=== PATIENT | male | born 1945 | race Caucasian/White ===

== ENCOUNTER 2017-09-22 02:37 | Inpatient (IN) | payer MEDICARE, BC ==
[2017-09-22] VITALS (23 sets, daily range): BP systolic 101–137; BP diastolic 64–85; BMI 35.5
[~2017-09-22] VITALS: Ht 180.3 cm; Wt 120.5 kg
--- NOTE | ~2017-09-22 | HEMODYNAMI ---
PATIENT:GAEL BRUNSON MEDICAL RECORD: [id number] : 49 LOCATION:[facility] D.2305 ADMISSION DATE: 09/22/17 Generatedon:09/22/201717:41 Patient name: GAEL BRUNSON Patient #: [id number] SSN: D OB: 1945 Date of study: 09/22/2017 Page: Of Hemodynamic Procedure Report Patient Data Patient Demographics Procedure consent was obtained First Name: GAEL Gender: Male Last Name: NANNETTE : 1945 Patient #: [id number] Age: 72 year(s) Race: Unknown Additional ID: [id number] Contact details [address]: [address] [place] [address] State: [place] City: [place] Zip code: [address] Admission Admission Data Admission Date: 09/22/2017 Admission Time: 2:37 Room #: D.2305 Procedure Procedure Types Cath Procedure Peripheral Cath Diagnostic Procedure Venography IVC/SVC Inferior Venacava Filter Procedure Description Procedure Date Procedure Date: 09/22/2017 Procedure Start Time: 17:07 Procedure Staff Name Function Jose Alfredo López MD Performing Physician Wilfredo Mohr RT Monitor Tanika Welch RT Scrub Lamar Morgan RN Nurse Procedure Data Cath Procedure Fluoroscopy Diagnostic fluoroscopy Total fluoroscopy Time: 1.3 time: 1.3 min min Diagnostic fluoroscopy Total fluoroscopy dose: 215 dose: 215 mGy mGy Contrast Material Contrast Material Type Amount (ml) Isovue 300 20 Procedure Medications Medication Administration Route Dosage Versed I.V. 1 mg Fentanyl I.V. 50 mcg Fentanyl I.V. 50 mcg Versed I.V. 1 mg Lidocaine 1% added to field 20 Heparin Flush Bag added to field 2 bags (1000units/500ml NS) Heparin Flush Bag added to field 1 bags (1000units/500ml NS) Hemodynamics Rest Heart Rate: 105 (bpm) Snapshots Pre Cath Intra NCS Post Cath Vital Signs Time Heart Resp SPO2 etCO2 NIBP (mmHg) Rhythm Pain Sedation Rate (ipm) (%) (mmHg) Status Level (bpm) 16:45:20 116 13 97 20.9 Measuring NSR 0 (11) 10(A) , No pain 16:45:49 100 12 96 23.2 145/78(109) NSR 0 (11) 10(A) , No pain 16:50:03 106 22 94 23.9 133/83(101) NSR 0 (11) 10(A) , No pain 16:54:17 123 23 95 23.9 122/87(102) NSR 0 (11) 10(A) , No pain 16:58:31 107 23 96 24.7 127/78(101) NSR 0 (11) 10(A) , No pain 17:02:43 105 24 97 24 130/81(97) NSR 0 (11) 10(A) , No pain 17:06:57 101 24 95 23.9 136/84(100) NSR 0 (11) 10(A) , No pain 17:11:07 99 27 92 24.7 129/83(107) NSR 0 (11) 10(A) , No pain 17:15:21 103 24 94 24.7 128/78(94) NSR 0 (11) 10(A) , No pain 17:19:30 104 23 94 25.5 127/83(96) NSR 0 (11) 10(A) , No pain 17:23:44 104 21 95 26.2 122/77(93) NSR 0 (11) 10(A) , No pain 17:27:56 100 26 94 24.7 123/77(98) NSR 0 (11) 10(A) , No pain 17:32:10 100 25 94 25.4 123/75(88) NSR 0 (11) 10(A) , No pain 17:36:24 104 23 94 26.2 118/77(95) NSR 0 (11) 10(A) , No pain 17:40:36 95 22 94 0 119/78(91) NSR 0 (11) 10(A) , No pain Medications Time Medication Route Dose Verified Delivered Reason Notes Effect iveness by by 17:06:23 Lidocaine 1% added 20ml to vial field 17:06:45 Heparin Flush added 2 Bag to bags (1000units/500ml field NS) 17:06:47 Heparin Flush added 1 Bag to bags (1000units/500ml field NS) 17:09:33 Versed I.V. 1 mg Jose Alfredo Newton for Rene Morgan RN sedation 17:09:43 Fentanyl I.V. 50 Jose Alfredo Newton for mcg Rene Morgan RN sedation 17:25:16 Fentanyl I.V. 50 Jose Alfredo Newton for mcg Rene Morgan RN sedation 17:25:24 Versed I.V. 1 mg Jose Alfredo Newton for Rene Morgan RN sedation Procedure Log Time Note 16:29:50 Wilfredo Onur RT (R) (CV) sent for patient. Start room use. 16:29:59 Time tracking: Regular hours 16:30:04 Plan of Care:Hemodynamics will remain stable., Cardiac rhythm will remain stable., Comfort level will be maintained., Respiratory function will remain adequate., Patient/ family verbilizes understanding of procedure., Procedure tolerated without complication., Recovers from procedure without complications.. 16:30:15 Patient received from ICU to IR Alert and oriented. Tansferred to table in Supine position. 16:30:16 Correct patient and procedure confirmed by team. 16:30:18 Signed procedure consent form obtained from patient. 16:30:19 ECG and BP/O2 sat monitors applied to patient. 16:30:20 Full Disclosure recording started 16:30:20 - 16:30:24 H&P Date Dictated: 09/22/2017 Within 30 days and on chart.. 16:30:25 Pre-procedure instructions explained to patient. 16:30:25 Pre-op teaching completed and patient verbalized understanding. 16:30:26 Family in waiting room. 16:30:28 Patient NPO since Midnight. 16:30:33 Is the patient allergic to Iodine/contrast media? No. 16:30:37 Is patient on blood thinner?Yes 16:31:10 ----Pre-sedation anethsthesia assessment.---- 16:31:15 Previous problem with sedation/anesthesia? No ? 16:31:17 Snore? No 16:31:18 Sleep apnea? No 16:31:19 Deviated septum? Yes 16:31:21 Opens mouth fully? Yes 16:31:24 Sticks out tongue? Yes 16:31:33 Airway obstruction? Yes PE 16:31:38 Dentures? No ? 16:31:42 Sharps counted by scrub and verified by R.N. 16:31:43 Alarms reviewed by R. N. 16:31:54 Right neck area was prepped with chlora-prep and draped in sterile fashion 16:34:26 Patient pain scale 0/10 no. 16:34:44 IV patent on arrival in left forearm with 0.9% NaCl at [facility]. 16:34:52 Use device set IR Diagnostic 16:34:53 ACIST Syringe (32833) opened to sterile field. 16:34:54 ACIST Hand Control (82052) opened to sterile field. 16:34:54 ACIST Manifold (81652) opened to sterile field. 16:34:55 Bag Decanter (2002S) opened to sterile field. 16:34:55 Sterile Angiographic Pack opened to sterile field. 16:43:31 Baseline sample Acquired. 16:43:31 Vital chart was started 17:06:23 Lidocaine 1% 20ml vial added to field was administered by ; ; 17:06:39 Physician arrived 17:06:39 --------ALL STOP TIME OUT------ 17:06:40 Final Timeout: patient, procedure, and site verified with staff and physician. All members of the team are in agreement. 17:06:45 Heparin Flush Bag (1000units/500ml NS) 2 bags added to field was administered by ; ; 17:06:47 Heparin Flush Bag (1000units/500ml NS) 1 bags added to field was administered by ; ; 17:06:47 Right neck site verified by team. 17:06:52 Sedation plan: IV Moderate Sedation Medication:Versed, Fentanyl 17:07:02 Procedure started. 17:07:16 Local anesthetic to right IJ vein with Lidocaine 1% by Jose Alfredo López MD.INITIAL ACCESS ONLY 17:07:29 TUBING Contrast Injection High Pressure (TCK104G) opened to sterile field. 17:07:29 TUBING Contrast Injection High Pressure (HBF464I) opened to sterile field. 17:07:29 Micropuncture VSI 4FR kit opened to sterile field. 17:07:30 BENTSON 145cm wire ([id number]) opened to sterile field. 17:07:30 Bard MOISE JUGULAR Vena Cava Filter opened to sterile field. 17:09:33 Versed 1 mg I.V. was administered by Lamar Morgan RN; for sedation; 17:09:43 Fentanyl 50 mcg I.V. was administered by Lamar Morgan RN; for sedation ; 17:10:56 Baseline sample Acquired. 17:25:16 Fentanyl 50 mcg I.V. was administered by Lamar Morgan RN; for sedation ; 17:25:24 Versed 1 mg I.V. was administered by Lamar Morgan RN; for sedation; 17:29:49 Procedure ended.(Physican Out) 17:30:17 Fluoroscopy time 01.30 minutes. 17:30:21 Fluoroscopy dose: 215 mGy 17:30:21 Flurop Dose total: 215 17:30:22 Sharps counted by scrub and verified by R.N. 17:30:24 Insertion/operative site no bleeding no hematoma. 17:30:30 Post-op/insertion site Right Jugular vein dressed using a 4 x 4 and Tegaderm. 17:30:35 Post right IJ vein:stable 17:30:55 Post procedure instruction explained to patient.Patient verbalizes understanding. 17:30:55 Procedure and supply charges have been captured, reviewed, submitted an d are correct. 17:32:37 Contrast amount:Isovue 300 20ml. 17:41:09 Report given to ICU. 17:41:12 Patient transfered to ICU with Bed. 17:41:48 Vital chart was stopped Device Usage Item Name Manufacture Quantity Catalog Hospital Part Current Minima l Lot# / Number Charge Number Stock Stock Serial# Code ACIST Syringe Acist 1 [id number] [id number] [id number] 20 (36800) Medical Systems Inc ACIST Hand Acist 1 60532 230329 561096 707927 5 Control Medical (29361) Systems Inc ACIST Acist 1 14231 716452 134281 591093 5 Manifold Medical (87016) Systems Inc Bag Decanter Microtek 1 454504 25588 078511 5 (2002S) Medical Inc. Sterile Cardinal 1 [id number] 799531 832297 5 Angiographic Health Pack TUBING Merit 2 [id number] 743522 521347 311521 5 Contrast Medical Injection High Pressure ([id number]) Micropuncture VSI VASCULAR 1 7266V 283742 977627 5 VSI 4FR kit SOLUTIONS BENTSON 145cm [facility] 1 [id number] 374861 232481 5 [id number] wire ([id number]) Bard MOISE Bard 1 [id number] 280071 471526 736387 5 [id number] JUGULAR Vena Cava Filter Signature Audit [place] Stage Time Signature Unsigned Intra-Procedure 09/22/2017 Wilfredo 5:41:46 PM Onur RT (R) (CV) Signatures Monitor : Wilfredo Signature : Onur RT Date : Time : [id number] [place] [address]
--- NOTE | ~2017-09-22 | CN ---
PATIENT NAME:GAEL BRUNSON MEDICAL RECORD: [id number] : 49 [facility] ADMIT DATE: 09/22/17 ACCOUNT: [id number] CONSULTING PHYSICIAN: MANUEL GLOVER MD REFERRING PHYSICIAN: UMA DAVIS MD DATE OF CONSULTATION: 09/22/2017 CONSULT REQUESTING PHYSICIAN: Zoraida Dunham MD REASON FOR CONSULTATION: Multiple PEs, DVT. HISTORY OF PRESENT ILLNESS: Mr. Brunson is a 72-year-old gentleman, who was just hospitalized at [facility] for possible pneumonia and flu. He was discharged home on 09/19/2017, but he has progressive shortness of breath over a week and he was seen at [facility]. There were some EKG changes and found out that the patient has DVT as well as elevated troponin. The patient was transferred over here for further care. PAST MEDICAL HISTORY: 1. DVT. 2. Hypertension. 3. Hyperlipidemia. 4. Hypothyroidism. 5. History of asbestos exposure. 6. Hypertension. PAST SURGICAL HISTORY: 1. He has ankle surgery. 2. Herniorrhaphy. ALLERGIES: No known drug allergies. MEDICATIONS: He was on Augmentin, amlodipine, metoprolol, and Synthroid. PERSONAL SOCIAL HISTORY: The patient is an ex-smoker. He is a nondrinker. FAMILY HISTORY: Significant for lung disease, diabetes, and cancer. PHYSICAL EXAMINATION: GENERAL: Now, the patient is lying comfortably in bed. He is not in acute distress. VITAL SIGNS: The blood pressure is 140/80, pulse is 97, respiration is 20, temperature is 97.7, and SpO2 is 95% on 5 liters nasal cannula. HEENT: Conjunctivae pink, sclerae nonicteric. NECK: Neck is supple. No JVD. CHEST: The chest excursion is minimal on both sides. There is basal crackle. No wheezing. HEART: Rhythm regular, normal sound, no murmur. ABDOMEN: Abdomen is soft. Bowel sounds present. No hepatosplenomegaly. RECTAL: Deferred. EXTREMITIES: No cyanosis, no clubbing, no pedal edema. SKIN: The skin is warm, normal turgor. CENTRAL NERVOUS SYSTEM: The patient is awake and alert. There is no obvious cranial nerve abnormality. The gait was not tested. CONSULT REPORT [id number] GAEL BRUNSON LABORATORY DATA AND DIAGNOSTIC STUDIES: CTA of the chest, there are multiple pulmonary embolism bilaterally, also shows right ventricular strain. There are also emphysematous changes. CBC: The WBC is 12, hemoglobin is 15.8, hematocrit 47.1, and the platelet count is 295. ABG: The pH is 7.47, pCO2 is 38.4, pO2 is 55, and bicarbonate is 28. IMPRESSION: 1. Acute hypoxic respiratory failure and multiple pulmonary embolisms. 2. Chronic obstructive pulmonary disease acute exacerbation. 3. Deep venous thrombosis. 4. Asbestos exposure. 5. Coronary artery disease with history of flu and pneumonia recently. RECOMMENDATION: 1. Continue Zosyn. 2. Lovenox subQ. 3. Agree with IVC filter placement. 4. Start methylprednisolone IV. 5. Mucinex DM. 6. Followup labs and chest radiograph. Dr. Dunham, thank you for involving me in the care of Mr. Brunson. TRANSINT:[id number] Voice Confirmation ID: [id number] DOCUMENT ID: [id number] MANUEL GLOVER MD CC: ZORAIDA DUNHAM MD [id number] DICTATION DATE: 09/22/17 1545 DOUGHNUT DOUGH MIXER: 09/22/17 1618 ADM IN [facility] [address] [id number]
[2017-09-22] MEDS ORDERED: NORVASC5 MG PO (02:42)
[2017-09-22] MEDS ORDERED: METOPROLOL TART25 MG PO (02:43)
[2017-09-22] MEDS ORDERED: SYNTHROID200 MC1 PO (02:43)
[2017-09-22] MEDS ORDERED: SYNTHROID50 MCG PO (02:45)
[2017-09-22] MEDS ORDERED: ZOCOR40 MG PO (02:46)
[2017-09-22] MEDS ORDERED: BENADRYL50 MG PO (02:47)
[2017-09-22 04:01] LABS: BASOPHILS 0.7 % (0-2); EOSINOPHILS 1.9 % (0-7); HEMATOCRIT 47.1 % (42.0-54.0); HEMOGLOBIN 15.8 g/dL (13.5-17.5); IMMATURE GRANULOCYTES 2.4 % (0-5); LYMPHOCYTES 15.8 % (15-50); MCH 33.3 pg (26.0-34.0); MCHC 33.5 g/dL (31.0-37.0); MCV 99.4 fL (80.0-100.0); MEAN PLATELET VOLUME 9.7 fL (7.4-10.4); MONOCYTES 13.3 % (2-11); NEUTROPHILS 65.9 % (40-80); PLATELET COUNT 295 10x3/uL (130-400); RBC 4.74 10x6/uL (4.20-6.10); RDW 13.3 % (11.5-14.5)
[2017-09-22 04:17] LABS: ALBUMIN 2.6 g/dL (3.4-5.0); ALKALINE PHOSPHATASE 127 U/L (46-116); ALT (SGPT) 52 U/L (10-68); CALC OSMOLALITY 275 mosm/kg (275-300); CALCIUM 8.5 mg/dL (8.5-10.1); CARBON DIOXIDE 31.7 mmol/L (21.0-32.0); CHLORIDE - SERUM 98 mmol/L (98-107); CREATININE - SERUM 1.3 mg/dL (0.6-1.3); GLUCOSE 125 mg/dL (74-106); POTASSIUM - SERUM 3.5 mmol/L (3.5-5.1); SODIUM 137 mmol/L (136-145); UREA NITROGEN 16 mg/dL (7-18); eGFR NON AFRICAN AMERICAN 58 mL/min (90-120)
[2017-09-22 04:33] LABS: CKMB 1.1 U/L (0.0-3.6); CREATINE KINASE 120 UL (21-232); TROPONIN-I 0.088 ng/mL (0.000-0.060)
[2017-09-22 12:20] LABS: THYROID STIMULATING HORMONE 0.54 uIU/mL (0.36-3.74); TROPONIN-I 0.051 ng/mL (0.000-0.060)
[2017-09-22 16:47] LABS: INR 1.19 (0.85-1.17); PROTIME 14.6 SECONDS (11.6-15.0)
[2017-09-23] VITALS (24 sets, daily range): BP systolic 93–132; BP diastolic 61–95; Ht 180.3 cm; Wt 120.5 kg
[2017-09-23 04:52] LABS: BASOPHILS 0.6 % (0-2); EOSINOPHILS 2.4 % (0-7); HEMATOCRIT 44.8 % (42.0-54.0); HEMOGLOBIN 14.6 g/dL (13.5-17.5); IMMATURE GRANULOCYTES 2.1 % (0-5); LYMPHOCYTES 15.2 % (15-50); MCH 32.5 pg (26.0-34.0); MCHC 32.6 g/dL (31.0-37.0); MCV 99.8 fL (80.0-100.0); MEAN PLATELET VOLUME 10.3 fL (7.4-10.4); MONOCYTES 13.3 % (2-11); NEUTROPHILS 66.4 % (40-80); PLATELET COUNT 320 10x3/uL (130-400); RBC 4.49 10x6/uL (4.20-6.10); RDW 13.5 % (11.5-14.5); WBC 9.7 10x3/uL (4.8-10.8)
[2017-09-23 05:10] LABS: ALBUMIN 2.3 g/dL (3.4-5.0); ANION GAP 12.2 mmol/L (8-16); BILIRUBIN - TOTAL 1.16 mg/dL (0.2-1.3); CALCIUM 8.3 mg/dL (8.5-10.1); CARBON DIOXIDE 30.2 mmol/L (21.0-32.0); CREATININE - SERUM 1.1 mg/dL (0.6-1.3); POTASSIUM - SERUM 3.4 mmol/L (3.5-5.1); PROTEIN - SERUM 6.4 g/dL (6.4-8.2)
[2017-09-23 11:21] LABS: ACLA - IGG AB <9 GPL U/mL (0-14); ACLA - IGM AB <9 MPL U/mL (0-12)
[2017-09-24] VITALS (13 sets, daily range): BP systolic 93–130; BP diastolic 61–86
[2017-09-24 07:19] LABS: BASOPHILS 0.7 % (0-2); EOSINOPHILS 2.7 % (0-7); HEMATOCRIT 43.7 % (42.0-54.0); HEMOGLOBIN 14.3 g/dL (13.5-17.5); IMMATURE GRANULOCYTES 3.8 % (0-5); LYMPHOCYTES 16.7 % (15-50); MCH 32.6 pg (26.0-34.0); MCHC 32.7 g/dL (31.0-37.0); MCV 99.8 fL (80.0-100.0); MEAN PLATELET VOLUME 10.1 fL (7.4-10.4); MONOCYTES 14.6 % (2-11); NEUTROPHILS 61.5 % (40-80); PLATELET COUNT 313 10x3/uL (130-400); RBC 4.38 10x6/uL (4.20-6.10); RDW 13.4 % (11.5-14.5); WBC 8.6 10x3/uL (4.8-10.8)
[2017-09-24 07:28] LABS: ALBUMIN 2.3 g/dL (3.4-5.0); ALKALINE PHOSPHATASE 111 U/L (46-116); ALT (SGPT) 38 U/L (10-68); BILIRUBIN - TOTAL 1.04 mg/dL (0.2-1.3); CALC OSMOLALITY 273 mosm/kg (275-300); CARBON DIOXIDE 30.8 mmol/L (21.0-32.0); CHLORIDE - SERUM 100 mmol/L (98-107); GLUCOSE 116 mg/dL (74-106); POTASSIUM - SERUM 3.2 mmol/L (3.5-5.1); PROTEIN - SERUM 6.5 g/dL (6.4-8.2); SODIUM 137 mmol/L (136-145); UREA NITROGEN 9 mg/dL (7-18); eGFR NON AFRICAN AMERICAN 78 mL/min (90-120)
[2017-09-24 11:18] LABS: CEA 0.9 ng/mL (0.0-4.7)
[2017-09-25] VITALS: BP 108/72
[2017-09-25 05:18] LABS: BASOPHILS 0.4 % (0-2); EOSINOPHILS 2.2 % (0-7); LYMPHOCYTES 20.8 % (15-50); MCH 32.5 pg (26.0-34.0); MCHC 32.6 g/dL (31.0-37.0); MCV 99.8 fL (80.0-100.0); MEAN PLATELET VOLUME 10.3 fL (7.4-10.4); MONOCYTES 12.6 % (2-11); PLATELET COUNT 333 10x3/uL (130-400); RBC 4.31 10x6/uL (4.20-6.10); RDW 13.4 % (11.5-14.5); WBC 8.5 10x3/uL (4.8-10.8)
[2017-09-25 05:55] LABS: ALBUMIN 2.3 g/dL (3.4-5.0); ALKALINE PHOSPHATASE 113 U/L (46-116); ALT (SGPT) 39 U/L (10-68); CALC OSMOLALITY 273 mosm/kg (275-300); CALCIUM 8.3 mg/dL (8.5-10.1); CARBON DIOXIDE 30.9 mmol/L (21.0-32.0); CHLORIDE - SERUM 101 mmol/L (98-107); GLUCOSE 102 mg/dL (74-106); PROTEIN - SERUM 6.6 g/dL (6.4-8.2); SODIUM 138 mmol/L (136-145); UREA NITROGEN 7 mg/dL (7-18); eGFR NON AFRICAN AMERICAN 78 mL/min (90-120)
[2017-09-25 06:00] VITALS: BP 106/72
[2017-09-25 08:42] VITALS: BP 130/72
[2017-09-25 09:16] LABS: ANTITHROMBIN III ACTIVITY 92 % (75-135)
[2017-09-25 10:34] LABS: MAGNESIUM - SERUM 2.5 mg/dL (1.8-2.4); PHOSPHOROUS 2.9 mg/dL (2.5-4.9)
[2017-09-25 11:21] LABS: LUPUS - INTERPRETATION Comment: (()); LUPUS - THROMBIN TIME 20.8 sec (0.0-23.0); LUPUS - dRVVT 44.9 sec (0.0-47.0); PROTEIN S - FREE 124 % (57-157); PROTEIN S - FUNCTIONAL 104 % (63-140); PROTEIN S - TOTAL 128 % (60-150); PTT-LA 42.8 sec (0.0-51.9)
[2017-09-25 11:49] VITALS: BP 119/72
[2017-09-25 15:25] LABS: FACTOR VIII - APTT 29.4 sec (22.9-30.2); FACTOR VIII - APTT 1:1 NP 27.3 sec (22.9-30.2); FACTOR VIII ACTIVITY 180 % (57-163)
[2017-09-25 15:51] VITALS: BP 123/58
[2017-09-25 20:00] VITALS: BP 124/60
[2017-09-26 04:00] VITALS: BP 122/61
[2017-09-26 05:51] LABS: BASOPHILS 0.7 % (0-2); HEMATOCRIT 42.2 % (42.0-54.0); HEMOGLOBIN 13.6 g/dL (13.5-17.5); IMMATURE GRANULOCYTES 4.6 % (0-5); LYMPHOCYTES 18.1 % (15-50); MCH 32.2 pg (26.0-34.0); MCHC 32.2 g/dL (31.0-37.0); MCV 99.8 fL (80.0-100.0); MEAN PLATELET VOLUME 10.1 fL (7.4-10.4); MONOCYTES 10.8 % (2-11); NEUTROPHILS 62.8 % (40-80); PLATELET COUNT 348 10x3/uL (130-400); RBC 4.23 10x6/uL (4.20-6.10); RDW 13.6 % (11.5-14.5); WBC 8.9 10x3/uL (4.8-10.8)
[2017-09-26 06:10] LABS: ALBUMIN 2.2 g/dL (3.4-5.0); ANION GAP 11.1 mmol/L (8-16); BILIRUBIN - TOTAL 0.5 mg/dL (0.2-1.3); CALCIUM 7.7 mg/dL (8.5-10.1); CARBON DIOXIDE 30.1 mmol/L (21.0-32.0); CREATININE - SERUM 1.1 mg/dL (0.6-1.3); POTASSIUM - SERUM 3.2 mmol/L (3.5-5.1); PROTEIN - SERUM 6.4 g/dL (6.4-8.2)
[2017-09-26 08:41] VITALS: BP 118/65
[2017-09-26 11:55] VITALS: BP 107/59
[2017-09-26 13:16] LABS: PROTEIN C - ANTIGEN 79 % (60-150); PROTEIN C - FUNCTIONAL 92 % (73-180)
[2017-09-26] MEDS ORDERED: MUCINEX DM ER1 EAC1 PO (15:27)
[2017-09-26] MEDS ORDERED: PULMICORT0.5 MG/21 UPD (15:27)
[2017-09-26] MEDS ORDERED: PROTONIX40 MG PO (15:28)
[2017-09-26] MEDS ORDERED: BROVANA15 MCG/2 M INH (15:28)
[2017-09-26] MEDS ORDERED: LEVAQUIN750 MG PO (15:29)
[2017-09-26] MEDS ORDERED: ELIQUIS5 MG PO ×2 (15:30→15:31)
[2017-09-26 16:04] VITALS: BP 125/69
[2017-09-29 20:09] LABS: FACTOR II DNA ANALYSIS Negative (())
== END 2017-09-26 19:19 | disposition home health service (06) | DRG 166 ==
LOC: D.ICU 02:37 → D.MS 02:37
PROVIDERS: Family Medicine; Internal Medicine Hematology & Oncology; Internal Medicine Nephrology; Radiology Diagnostic Radiology
PROC: 06H03DZ Insertion of Intraluminal Device into Inferior Vena Cava, Percutaneous Approach (ICD-10-PCS; principal; 2017-09-22 16:30)
DX: I26.99 Other pulmonary embolism without acute cor pulmonale (principal); J96.01 Acute respiratory failure with hypoxia; J18.9 Pneumonia, unspecified organism; J44.1 Chronic obstructive pulmonary disease with (acute) exacerbation; J44.0 Chronic obstructive pulmonary disease with (acute) lower respiratory infection; J98.11 Atelectasis; D68.59 Other primary thrombophilia; I82.413 Acute embolism and thrombosis of femoral vein, bilateral; I82.443 Acute embolism and thrombosis of tibial vein, bilateral; I10 Essential (primary) hypertension; E78.5 Hyperlipidemia, unspecified; E03.9 Hypothyroidism, unspecified; I25.10 Atherosclerotic heart disease of native coronary artery without angina pectoris; Z77.090 Contact with and (suspected) exposure to asbestos; Z87.891 Personal history of nicotine dependence

== ENCOUNTER → 2018-01-14 12:29 | Outpatient (CLI) | payer MEDICARE, BC ==
[2017-09-23 14:42] VITALS: BMI 35.4
[~2018-01-14 12:29] MED LIST: BENADRYL50 MG PO; BROVANA15 MCG/2 M INH; COZAAR100 MG PO; ELIQUIS5 MG PO; LEVAQUIN750 MG PO; METOPROLOL TART25 MG PO; MUCINEX DM ER1 EAC1 PO; NORVASC5 MG PO; PROTONIX40 MG PO; PULMICORT0.5 MG/21 UPD; SYNTHROID200 MC1 PO; SYNTHROID50 MCG PO; ZOCOR40 MG PO
== END | disposition home or self-care (01) ==
LOC: D.RT 12:29 → D.US 14:00
DX: J44.9 Chronic obstructive pulmonary disease, unspecified (principal); I82.409 Acute embolism and thrombosis of unspecified deep veins of unspecified lower extremity; I26.99 Other pulmonary embolism without acute cor pulmonale; R22.43 Localized swelling, mass and lump, lower limb, bilateral

== ENCOUNTER 2018-01-27 06:40 | Outpatient (CLI) | payer MEDICARE, BC ==
[~2018-01-27] VITALS: Ht 180.3 cm; Wt 90.9 kg
--- NOTE | ~2018-01-27 | HEMODYNAMI ---
PATIENT:GAEL BRUNSON MEDICAL RECORD: [id number] : 49 LOCATION:[facility] ADMISSION DATE: 01/27/18 Generatedon:01/27/20189:47 Patient name: GAEL BRUNSON Patient #: [id number] SSN: D OB: 1945 Date of study: 01/27/2018 Page: Of Hemodynamic Procedure Report Patient Data Patient Demographics Procedure consent was obtained First Name: GAEL Gender: Male Last Name: NANNETTE : 1945 [facility] Initial: VINDAL Age: 72 year(s) Patient #: [id number] Race: Unknown Additional ID: [id number] Contact details Address: [address] [place] [address] State: [place] City: [place] Zip code: [address] Past Medical History Allergies: No known allergies Admission Admission Data Admission Date: 01/27/2018 Admission Time: 6:40 Procedure Procedure Types Cath Procedure Peripheral Cath Diagnostic Procedure Venography IVC/SVC IVC Filter Retreival Procedure Description Procedure Date Procedure Date: 01/27/2018 Procedure Start Time: 9:20 Procedure End Time: 9:46 Procedure Staff Name Function Jose Alfredo López MD Performing Physician Tanika Welch RT Monitor Raiza Carrasco RN Nurse Wilfredo Mohr RT Scrub Procedure Data Cath Procedure Fluoroscopy Diagnostic fluoroscopy Total fluoroscopy Time: 2.7 time: 2.7 min min Diagnostic fluoroscopy Total fluoroscopy dose: 241 dose: 241 mGy mGy Contrast Material Contrast Material Type Amount (ml) Isovue 300 15 Procedure Medications Medication Administration Route Dosage Fentanyl I.V. 50 mcg Versed I.V. 2 mg Lidocaine 1% added to field 20 Heparin Flush Bag added to field 1 bags (1000units/500ml NS) Oxygen etCO2 Nasal cannula 4 l/min Hemodynamics Rest Heart Rate: 67 (bpm) Snapshots Pre Cath Intra NCS Post Cath Vital Signs Time Heart Resp SPO2 etCO2 NIBP (mmHg) Rhythm Pain Sedation Rate (ipm) (%) (mmHg) Status Level (bpm) 8:42:03 67 26 96 0 129/75(111) NSR 0 (11) 10(A) , No pain 8:46:21 7 95 0 130/81(92) NSR 0 (11) 10(A) , No pain 8:50:39 62 22 98 30.7 133/82(115) NSR 0 (11) 10(A) , No pain 8:54:59 63 22 97 30.7 130/74(106) NSR 0 (11) 10(A) , No pain 8:59:17 63 25 98 33 128/80(100) NSR 0 (11) 10(A) , No pain 9:03:39 62 21 99 33 130/73(93) NSR 0 (11) 10(A) , No pain 9:07:59 61 19 98 32.2 127/73(89) NSR 0 (11) 10(A) , No pain 9:12:17 64 22 99 31.5 125/80(104) NSR 0 (11) 10(A) , No pain 9:16:33 66 25 98 27.7 138/78(121) NSR 0 (11) 10(A) , No pain 9:20:51 68 24 98 32.3 137/82(112) NSR 0 (11) 8(A) , No pain 9:24:59 65 18 94 34.4 119/71(100) NSR 0 (11) 8(A) , No pain 9:29:15 62 20 94 34.5 125/72(101) NSR 0 (11) 8(A) , No pain 9:33:29 64 18 94 38.3 124/75(101) NSR 0 (11) 8(A) , No pain 9:37:43 67 24 94 26.2 117/75(97) NSR 0 (11) 8(A) , No pain 9:41:59 63 17 92 32.9 125/74(102) NSR 0 (11) 8(A) , No pain 9:45:59 0 No Cuff NSR 0 (11) 8(A) , No pain Medications Time Medication Route Dose Verified Delivered Reason Notes Effect iveness by by 9:20:05 Oxygen etCO2 4 Jose Alfredo Eastman Per Nasal l/min Rene Carrasco RN protocol cannula 9:22:59 Fentanyl I.V. 50 Jose Alfredo Raiza per drug Mostly mcg Rene Carrasco RN protocol sleeping @ 9:28:26 9:23:15 Versed I.V. 2 mg Jose Alfredo Raiza for Mostly Rene Carrasco RN sedation sleeping @ 9:28:23 9:23:31 Lidocaine 1% added 20ml Jose Alfredo Jose Alfredo Per to vial Rene López protocol field MD SANDOVAL 9:23:47 Heparin Flush added 1 Jose Alfredo Veliz Per Bag to bags Rene ambrose (1000units/500ml field MD SANDOVAL NS) Procedure Log Time Note 8:16:55 Diagnostic Cath Status : Elective 8:20:02 Use device set IR Diagnostic 8:20:09 Bag Decanter (2002S) opened to sterile field. 8:20:11 Sterile Angiographic Pack opened to sterile field. 8:20:12 Tegaderm 4 x 4 (1626W) opened to sterile field. 8:20:52 MICROPUNCTURE 4FR Cook ([id number]) opened to sterile field. 8:21:02 BENTSON 145cm wire (S99829) opened to sterile field. 8:40:00 Wilfredo Mohr RT (R) (CV) sent for patient. Start room use. 8:40:05 Time tracking: Regular hours (M-F 7:00 - 5:00) 8:40:16 Plan of Care:Hemodynamics will remain stable., Cardiac rhythm will remain stable., Comfort level will be maintained., Respiratory function will remain adequate., Patient/ family verbilizes understanding of procedure., Procedure tolerated without complication., Recovers from procedure without complications.. 8:40:34 Patient received from Outpatients to IR Alert and oriented. Tansferred to table in Supine position. 8:40:37 Warm blankets applied, and juvencio hugger turned on for patient comfort. 8:40:40 Correct patient and procedure confirmed by team. 8:40:46 Signed procedure consent form obtained from patient. 8:40:50 ECG and BP/O2 sat monitors applied to patient. 8:40:51 Vital chart was started 8:40:55 Baseline sample Acquired. 8:41:02 Full Disclosure recording started 8:41:29 H&P Date Dictated: 01/27/2018 H&P Addendum completed by physician on day of procedure. (MUST COMPLETE FOR ALL OUTPATIENTS). 8:41:32 Pre-procedure instructions explained to patient. 8:41:34 Pre-op teaching completed and patient verbalized understanding. 8:41:45 Family in waiting room. 8:41:51 Patient NPO since Midnight. 8:42:18 Patient allergic to No known allergies 8:42:23 Is the patient allergic to Iodine/contrast media? No. 8:42:39 Is patient on blood thinner?Yes 8:43:25 ACC The patient was administered the following blood thiners within the last 24 hours: Justin 8:43:34 Patient diabetic? No. 8:43:41 8:43:43 ----Pre-sedation anethsthesia assessment.---- 8:43:49 Previous problem with sedation/anesthesia? No ? 8:43:52 Snore? No 8:43:55 Sleep apnea? No 8:43:58 Deviated septum? No 8:44:01 Opens mouth fully? Yes 8:44:03 Sticks out tongue? Yes 8:44:19 Airway obstruction? Yes COPD 8:44:28 Dentures? No ? 8:44:45 Patient pain scale 0/10 ?. 8:45:33 IV patent on arrival in left antecubital with 0.9% NaCl at [facility]. 8:46:04 Right Internal jugular was prepped with chlora-prep and draped in sterile fashion. 8:46:06 Alarms reviewed by R. N. 8:46:07 Sharps counted by scrub and verified by R.N. 8:57:23 SNARE Filter Retreival Kit (SRK20) opened to sterile field. 9:12:38 Physician arrived 9:12:45 --------ALL STOP TIME OUT------ 9:12:48 Final Timeout: patient, procedure, and site verified with staff and physician. All members of the team are in agreement. 9:13:03 Right neck site verified by team. 9:13:15 Sedation plan: IV Moderate Sedation Medication:Versed, Fentanyl 9:17:32 Procedure started. 9:20:05 Oxygen 4 l/min etCO2 Nasal cannula was administered by Raiza Carrasco RN; Per protocol; 9:20:29 Local anesthetic to right IJ vein with Lidocaine 1% by Jose Alfredo López MD.INITIAL ACCESS ONLY 9:21:05 DILATOR, VESSEL 8/20 opened to sterile field. 9:22:22 Access obtained with 4Fr micropunture. 9:22:59 Fentanyl 50 mcg I.V. was administered by Raiza Carrasco RN; per drug protocol; 9:23:15 Versed 2 mg I.V. was administered by Raiza Carrasco RN; for sedation; 9:23:31 Lidocaine 1% 20ml vial added to field was administered by Jose Alfredo López MD; Per protocol; 9:23:47 Heparin Flush Bag (1000units/500ml NS) 1 bags added to field was administered by Jose Alfredo López MD; Per protocol; 9:26:33 11 TELUGU SHEATH RETRIVAL INSERTED 9:27:27 An injection is made by hand. 9:27:55 Bentson wire is advanced. 9:28:23 Effectiveness of Versed delivered @ 9:23:15 is: Mostly sleeping 9:28:26 Effectiveness of Fentanyl delivered @ 9:22:59 is: Mostly sleeping 9:35:30 The filter is removed thru the sheath. 9:35:48 An injection is made by hand. 9:37:49 Sheath is removed, pressure applied to the Right IJ. 9:38:12 Procedure ended.(Physican Out) 9:38:47 Fluoroscopy time 02.70 minutes. 9:38:54 Fluoroscopy dose: 241 mGy 9:38:54 Flurop Dose total: 241 9:39:07 Contrast amount:Isovue 300 15ml. 9:39:10 Sharps counted by scrub and verified . 9:39:40 Insertion/operative site no bleeding no hematoma. 9:39:54 Post right IJ vein:stable 9:40:06 Post procedure instruction explained to patient.Patient verbalizes understanding. 9:40:08 Patient needs reinforcement of post procedure teaching. 9:40:13 Procedure and supply charges have been captured, reviewed, submitted and are correct. 9:45:37 See physician's report for complete and final results. 9:45:40 Report given to Outpatients. 9:45:47 Patient transfered to Outpatients with Stretcher. 9:45:55 Vital chart was stopped 9:46:04 Procedure ended. 9:46:04 Full Disclosure recording stopped Device Usage Item Name Manufacture Quantity Catalog Hospital Part Current Minima l Lot# / Number Charge Number Stock Stock Serial# Code Bag Decanter Microtek 1 [id number] 5 () Medical Inc. Sterile Cardinal 1 [id number] 372478 936154 5 Angiographic Health Pack Tegaderm 4 x 3M 1 1626W 775111 379032 880308 5 4 (1626W) MICROPUNCTURE Cook [facility] 1 [id number] 616465 108155 343452 5 4FR Cook ([id number]) BENTSON 145cm Cook [facility] 1 [id number] 350342 737200 5 [id number] wire ([id number]) SNARE Filter Bard 1 SRK20 094908 083863 5 Retreival Kit (SRK20) DILATOR, [facility] 1 [id number] 244679 62640 640163 5 VESSEL 04/06 Signature Audit [place] Stage Time Signature Unsigned Intra-Procedure 01/27/2018 Tanika 9:47:20 AM Rebekah DE LUNA (R) (CV) Signatures Monitor : Tanika Signature : Rebekah RT Date : Time : [address] [address]
[~2018-01-27 06:40] MED LIST changes: -COZAAR100 MG PO
[2018-01-27 07:03] LABS: BASOPHILS 0.7 % (0-2); EOSINOPHILS 3.1 % (0-7); HEMATOCRIT 51.8 % (42.0-54.0); HEMOGLOBIN 17.6 g/dL (13.5-17.5); IMMATURE GRANULOCYTES 0.3 % (0-5); LYMPHOCYTES 39.4 % (15-50); MCH 33.1 pg (26.0-34.0); MCV 97.6 fL (80.0-100.0); MEAN PLATELET VOLUME 10.7 fL (7.4-10.4); MONOCYTES 14.4 % (2-11); NEUTROPHILS 42.1 % (40-80); RBC 5.31 10x6/uL (4.20-6.10); RDW 12.5 % (11.5-14.5); WBC 6.8 10x3/uL (4.8-10.8)
[2018-01-27 07:16] LABS: INR 1.23 (0.85-1.17)
[2018-01-27 07:17] LABS: APTT 32.3 SECONDS (22.8-39.4); PLATELET COUNT 198 10x3/uL (130-400)
[2018-01-27 07:23] LABS: ANION GAP 10.1 mmol/L (8-16); CALCIUM 8.7 mg/dL (8.5-10.1); CARBON DIOXIDE 30.5 mmol/L (21.0-32.0); CREATININE - SERUM 1.2 mg/dL (0.6-1.3); POTASSIUM - SERUM 3.6 mmol/L (3.5-5.1)
[2018-01-27] MEDS ORDERED: COZAAR100 MG PO (07:23)
[2018-01-27 07:32] VITALS: Ht 180.3 cm; Wt 90.9 kg
== END 2018-01-27 11:42 | disposition home or self-care (01) ==
LOC: D.SP 06:40 → D.RAD 09:00 → D.SP 09:00
PROVIDERS: Radiology Diagnostic Radiology
DX: I82.409 Acute embolism and thrombosis of unspecified deep veins of unspecified lower extremity (principal); I26.99 Other pulmonary embolism without acute cor pulmonale; Z01.812 Encounter for preprocedural laboratory examination

== ENCOUNTER → 2019-05-24 13:39 | Outpatient (CLI) | payer MEDICARE, BC ==
[2018-01-27 07:32] VITALS: BMI 27.9
[~2019-05-24 13:39] MED LIST changes: +COZAAR100 MG PO
--- NOTE | 2019-05-27 13:30 | ST ---
PATIENT:GAEL BRUNSON MEDICAL RECORD: [id number] SEX: M LOCATION:[facility] ORDER #: ADMISSION DATE: 05/24/19 AGE OF PATIENT: 74 REFERRING PHYSICIAN: INTERPRETING PHYSICIAN: JENIFFER EVANS MD DATE OF SERVICE: 05/24/2019 INDICATION: Shortness of breath, dyspnea on exertion. Family history of coronary artery disease. He was exercised on standard Sam protocol for 5 minutes achieving greater than 85% max target heart rate response with marked hypertensive response to exercise, but no EKG changes, no dysrhythmias, no angina. OVERALL IMPRESSION: Negative for inducible ischemia. Center medical management on treatment, hypertension. TRANSINT:[id number] Voice Confirmation ID: [id number] DOCUMENT ID: [id number] JENIFFER EVANS MD at 1330 CC: SHASHA CHAMPAN MD [id number] DICTATION DATE: 05/25/19 1222 CARDIOLOGY CLINICAL NURSE SPECIALIST: 05/26/19 0634 DEP CLI 05/24/19 [id number] [place] [address]
--- NOTE | 2019-05-31 11:10 | EC ---
PATIENT:GAEL BRUNSON DATE OF SERVICE: 05/24/19 SEX: M MEDICAL RECORD: [id number] DATE OF : 49 [facility] AGE OF PATIENT: 74 ADMISSION DATE: 05/24/19 REFERRING PHYSICIAN: INTERPRETING PHYSICIAN: JENIFFER ARSHAD MD ECHOCARDIOGRAM REPORT ECHO CHARGES 4 ECHO COMPLETE Date: 05/24/19 CLINICAL DIAGNOSIS: HTN, SOB/FAMILY HS OF CAD ECHOCARDIOGRAPHIC MEASUREMENTS (adult normal given) AC root (d.<3.7cm) 4.0 cm LV Septum d (<1.2 cm> 1.5 cm Valve Excursion 1.9 cm LV Septum (systole) 1.7 cm Left Atria (s.<4.0cm> 4.0 cm LVPW d(<1.2cm) 1.8 cm RV (d.<2.3cm) 3.5 cm LVPW (sytole) 2.3 cm LV diastole(<5.6CM) 4.8 cm MV E-F(>70mm/sec) cm LV systole 2.8 cm LVOT Diameter 2.1 cm MV exc.(>10mm) 1.4 cm Est.ejection fraction (50-75%) % DOPPLER: LVIT cm/sec A 59.0 cm/sec E 41.0 cm/sec LA cm/sec RVSP 23 mmHg LVOT 88 cm/sec AOP1/2T m/s Asc. Ao 105 cm/sec RVOT 76 cm/sec RA cm/sec PA 99 cm/sec AV Gradient Peak 4.41 mmHg AV Mean 2.22 mmHg AV Area 3.7 cm MV Gradient Peak 1.66 mmHg MV Mean 0.74 mmHg MV Area cm COMMENTS: Sales Systems Engineer: 2 ISELA MONTES Lurer: 1 Dr. Arshad TAPE# PACS Pericardial Effusion N DATE OF SERVICE: PROCEDURE: Echocardiogram. FINDINGS: 1. Left ventricular chamber size is within normal limits. Left ventricular systolic function is normal. Overall ejection fraction estimated at 60%. 2. Left atrium is enlarged at 4.0 cm. Right atrium and right ventricular chamber sizes are as well mildly dilated. 3. Valvular structures have normal structure and motion. ECHOCARDIOGRAM REPORT [id number] GAEL BRUNSON 4. Doppler interrogation reveals trace tricuspid regurgitation, no other valvular insufficiency or stenosis. Pulmonary systolic pressure is normal estimated at 23 mmHg. 5. No evidence of pericardial effusion or left ventricular thrombus. TRANSINT:[id number] Voice Confirmation ID: [id number] DOCUMENT ID: [id number] JENIFFER ARSHAD MD at 1110 CC: [id number] DICTATION DATE: 05/27/19 1358 CANDY ROLLING MACHINE OPERATOR: 05/27/19 1431 DEP CLI 05/24/19 [place] [id number] [place] [id number]
== END | disposition home or self-care (01) ==
LOC: D.HCCECHO 13:39
PROVIDERS: ATTEND Internal Medicine Interventional Cardiology
DX: R06.02 Shortness of breath (principal); I10 Essential (primary) hypertension